=== PATIENT | female | born 1990 | race Caucasian/White ===

== ENCOUNTER → 2018-03-13 14:41 | Outpatient (CLI) | payer MEDICAID, SELFPAY ==
[2018-03-13 18:35] LABS: Hemoglobin A1c 4.7 % (4.2-6.3)
[2018-03-13 21:14] LABS: Follicle Stimulating Hormone 3.3 mIU/mL; Free T3 2.8 pg/mL (2.18-3.98); Glucose 79 mg/dL (74-106); Luteinizing Hormone 8.7 mIU/mL; Prolactin 6.5 ng/mL; T4 Free Direct 0.91 ng/dL (0.76-1.46); Thyroid Stim Hormone (TSH) 1.09 uIU/mL (0.358-3.74)
[2018-03-17 14:53] LABS: HPV Reflexed? NOT INDICATED
== END ==
PROVIDERS: Visit Provider Obstetrics & Gynecology
DX: Z12.4 Encounter for screening for malignant neoplasm of cervix (principal); N92.5 Other specified irregular menstruation
CPT/HCPCS: 36415; 82947; 83001; 83002; 83036; 84146; 84439; 84443; 84481; 88175; G0145

== ENCOUNTER 2018-06-17 05:55 | Day surgery (SDC) | payer MEDICAID, SELFPAY ==
[2018-06-11 11:48] LABS: Hematocrit 39.4 % (37-47); Hemoglobin 13.3 g/dl (12.0-15.0); Mean Corp Hgb Conc 33.8 g/gl (32-36); Mean Corpuscular Hgb 32.9 pg (27.0-32.0); Mean Corpuscular Volume 97.5 fL (81-99); Mean Platelet Vol. 9.7 fl (6.2-12.0); Platelet Count 221 K/mm3 (150-450); RBC Distribution Width CV 12.4 % (11.6-14.6); RBC Distribution Width SD 43.2 fl (35.1-43.9); Red Blood Count 4.04 M/mm3 (4.2-5.4); White Blood Count 5.7 K/mm3 (4.4-11.0)
[2018-06-11 11:49] LABS: Scan Indicated on CBC? Y/N NO
[2018-06-11 12:01] LABS: Prothrombin Time (Protime)PT. 13.4 SECONDS (11.7-14.9)
[2018-06-11 12:02] LABS: Partial Thromboplast Time 30.4 Seconds (24.1-36.2)
[2018-06-11 12:49] LABS: Pregnancy, Serum, hCG Quali. NEGATIVE Negative (0-9 Nonpreg)
[2018-06-17 06:12] VITALS: BP 106/71; PULSE 58; RESP 16; TEMP 36.7; O2SAT 98; BMI 22.1
[2018-06-17 06:31] LABS: Internal QC Validated? YES +Cl - CLEAR BKGD; Pregnancy, Urine Negative Negative
--- NOTE | 2018-06-17 07:30 | FALS_PTH ---
PATIENT: WHITNEY HERNANDEZ LOC: [facility] [place] U#:[id number] AGE/SX: 27/F ROOM: RE06/17/[address]: Dr. Pa Mendoza MD : [id number] BED: DIS: 06/17/2018 SPEC #: [id number] RECD: 06/17/18 09:58 STATUS: COLE RECapo #: [id number] MARYBETH: 06/17/18 07:[address]: Pa Mendoza DEPT: SURGICAL PATHOLOGY RECD BY: Ronaldo Schmitt ENTERED: 06/17/18 11:03 SP TYPE: FALL TUBES OTHR DR: Dr. Mt Maciel MD Tissues: Fallopian tube Procedures: Surgery Specimen Level II HEADER OPERATION: Bilateral laparoscopic salpingectomy PRE-OP DIAGNOSIS: Sterilization request TISSUE SUBMITTED: Bilateral fallopian tubes MICROSCOPIC DIAGNOSIS Right and left fallopian tubes, salpingectomies: Two complete cross-sections of fallopian tubes with no pathologic change. AM:barrett 06/18/18 MICROSCOPIC DESCRIPTION Slides are reviewed. GROSS DESCRIPTION Received is one container labeled with the patient's name and designated bilateral fallopian tubes. The specimen consists of four tubular fragments of pink-lainez soft tissue. The smallest measures 1 cm in greatest dimension and the largest measures 3 cm. Fimbrial ends are identified on two fragments. Boatswain'S Mate sections are submitted in one cassette. / AM:barrett 06/17/18 TC: 4 CPT: 71993 x2
--- NOTE | 2018-06-17 07:44 | PCM.DC ---
You will use the following diet at home:: No restrictions Your food should be the consistency of: Regular Discharge Activity: Return to Normal Activity, May Drive, May not drive while taking narcotic pain medications., May Shower Return to work on:: 06/22/18 May resume sexual activity in: 2 weeks Call your doctor if your incision/area has: Sudden Increased Bleeding, Increased Pain/ Swelling, Increased Redness, Foul Smelling Discharge, Swelling at the incision site Call your doctor if you observe: Fever of 101 or Higher, Inability to urinate, Inability to have a bowel movement, Using more than one pad per hour, Shortness of breath, Chest pain, Calf discomfort, Uncontrolled pain Remove Dressing in (days):: 2 Cleanse incision/area with: Soap & Water Allergies/Adverse Reactions: Allergies Iodinated Contrast- Oral and IV Dye Allergy (Verified 06/10/18 11:13) Angioedema morphine Adverse Reaction (Verified 06/10/18 11:18) Vomiting Medications to take at Discharge Fluoxetine [Prozac] 20 mg PO DAILY 06/10/18 Gabapentin [Neurontin] 300 mg PO TID 06/10/18 Norgestimate-Ethinyl Estradiol [Evangeline-Linyah 28 Tablet] 1 each PO DAILY 06/10/18 Ibuprofen 600 mg PO 4X/DAY #30 tab 06/17/18 Oxycodone [Oxyir] 5 mg PO Q4H PRN PRN 7 Days #20 tab 06/17/18 The following prescriptions were given: Oxycodone [Oxyir] 5 mg PO Q4H PRN PRN 7 Days #20 tab PRN Reason: Severe Pain (6-10/10) Ibuprofen 600 mg PO 4X/DAY #30 tab Primary Care Physician: Mt Maciel MD [Primary Care Provider] - Test Results: Test results from this visit will be discussed in further detail at your follow-up appointment, if applicable. Please Follow Up With: Pa Mendoza MD When: one week Proposed Discharge Date: 06/17/18
--- NOTE | 2018-06-17 07:47 | OP.PCM_ITS ---
Report of Operation Date of Procedure: 06/17/18 Pre-Operative Diagnosis: Requests permanent sterilization Post-Operative Diagnosis: Same Surgery/Procedure Performed:: Laparoscopic Bilateral Salpingectomy and lysis of pelvic/abdominal adhesions Description of Surgical Findings:: Normal appearing uterus, cervix, and ovaries. Both fallopian tubes had been status post ligation but left side appeared both ends connected. Filmy adhesions present on left and right lower abdominal sidewalls between bowel and sidewalls. Normal appearing gallbladder, stomach, liver and appendix. business programmer: Kezia Carrera Type of Anesthesia:: General Anesthesiologist: Reynaldo Alvarez Special Medications: none Specimen's removed: right and left fallopian tubes Drains: none Estimated Blood Loss (mL): minimal Fluids Replaced: 600cc LR Description of Procedure: Karen was taken to the OR with IV running. SHe was given two grams of Cefotetan intravenously for surgical prophylaxis. General anesthesia was introduced without complication. She was then prepped and draped in the dorsal lithotomy position. A red rubber catheter was used to drain the bladder. A uterine manipulator was then placed. Attention was then directed to the abdomen. A 5mm vertical incision was then made in the lower base of the umbilicus. A Sue clamp was then used to bluntly dissect the subcutaneous tissue to the level of the fascia. The abdominal wall was then elevated and a Veress needle was placed through the umbilical defect into the abdominal cavity. The abdomen was then inflated to 15 Torr with CO2 gas. The Veress needle was removed and replaced with a 5mm laparoscopic trocar and sleeve. The trocar was removed and replaced with the laparoscope. A thorough survey of the abdomen and pelvis was then performed. Findings were as described above. Two additional 5 mm laparoscopic ports were placed with direct visualization of the laparoscope. One was placed laterally 4 cm below the level of the umbilicus lateral to the left inferior epigastric vessel. The second was placed in the midline midway between the umbilicus and the symphysis pubis. The left fallopian tube was then grasped at the fimbriated end elevated and the distal portion dissected along the mesosalpinx to it's cut portion. This portion of the tube was then removed. The proximal portion was then dissected along the mesosalpinx to the cornua of the uterus and then amputated and removed. The right fallopian tube was removed in a similar fashion. The pelvic and abdominal adhesions were then carefully dissected free. Funmi was used over these areas. Hemostasis was excellent. The laparoscopic ports were then removed. The incisions were closed with 4-0 Monocryl suture. The incision sites were injected with 0.25% Marcaine. SHe was reversed from anesthesia and taken to the recovery room in stable condition. Sponge, needle, and instrument counts were correct. Grafts/Implants Used: Funmi - Complications none - Admit VTE Documentation VTE Present on Admission: No VTE Mechan Device Prophylaxis: SCD's VTE Pharm Prophylaxis ordered?: No
[2018-06-17] MEDS: Bupivacaine 0.25% 30 ML Vial (08:19)
[2018-06-17 08:33] VITALS: BP 106/71; BP 130/84; PULSE 71; RESP 18; TEMP 36.6; O2SAT 100
[2018-06-17 08:45] VITALS: BP 106/71; BP 137/88; PULSE 67; RESP 18; O2SAT 100
[2018-06-17 09:00] VITALS: BP 106/71; BP 118/87; PULSE 79; RESP 16; O2SAT 99
[2018-06-17 09:15] VITALS: BP 106/71; BP 111/73; PULSE 77; RESP 16; TEMP 36.6; O2SAT 97
[2018-06-17] MEDS: Lactated Ringers 1,000 ML 125 ML IV (09:42)
[2018-06-17] MEDS: oxyCODONE 5 MG Tablet PO (09:42)
[2018-06-17 10:14] VITALS: BP 106/71; BP 116/78; PULSE 66; RESP 18; TEMP 36.5; O2SAT 96
== END 2018-06-17 10:21 | disposition home or self-care (01) ==
LOC: SDC 05:55 → AC 05:55
PROVIDERS: Family Provider Family Medicine; PCP Family Medicine; Referring Provider Obstetrics & Gynecology; Visit Provider Obstetrics & Gynecology
PROC: (CPT 58661; principal; 2018-06-17 07:15)
DX: Z30.2 Encounter for sterilization (principal); F32.9 Major depressive disorder, single episode, unspecified; F41.9 Anxiety disorder, unspecified; F12.90 Cannabis use, unspecified, uncomplicated; F17.200 Nicotine dependence, unspecified, uncomplicated
CPT/HCPCS: 58661; 36415; 81025; 84703; 85027; 85610; 85730; 86850; 86900; 88302; J7120; J2405

== ENCOUNTER 2018-06-25 11:13 | Emergency (ER) | payer MEDICAID, SELFPAY ==
[2018-06-25 11:15] VITALS: BP 119/78; PULSE 75; RESP 17; TEMP 36.8; O2SAT 99; BMI 21.8
--- NOTE | 2018-06-25 11:31 | RAD_ITS ---
STUDY: X-RAY - RIGHT WRIST REASON FOR EXAM: Female, 27 years old. Pain following a recent fall. TECHNIQUE: 4 view(s) of the wrist were obtained including a navicular view. COMPARISON: None. FINDINGS: There is demineralization of the radius and ulna. Normal radiocarpal articulation. Normal distal radioulnar articulation. There is demineralization of the carpal bones. Normal carpal articulations. Normal carpometacarpal articulation of the thumb. Normal second through fifth carpometacarpal articulations. Normal visualized metacarpal bones. The soft tissue structures are unremarkable. RAD/Wrist min 3 Views IMPRESSION: No acute fracture is seen. Osteopenia. Electronically Signed: Phill Luna MD at 13:30 EST , Service support ,
[2018-06-25] MEDS: HYDROcodone Bitartrate/Apap 5/325 Tablet PO (11:41)
--- NOTE | 2018-06-25 14:01 | ED.DCSUM_ITS ---
- ER Visit Summary Date of Service: 06/25/18 Chief Complaint: Wrist injury History of Present Illness: The patient is a 27 F with a wrist injury yesterday evening. The patient slipped on ice and fell on her right wrist. She has pain over her right snuffbox. Worse with movement. No other injuries or complaints. Physical Examination: Vitals unremarkable. Head and neck atraumatic. Alert and oriented. Right snuffbox tender to palpation. Overlying skin normal. No deformity. Neurovascular intact distally. Good range of motion. Test Results: X-rays negative. Emergency Department Course and Treatment: Risks of a scaphoid injury were discussed. The patient was placed in a thumb spica splint. Rest ice elevate. Follow-up with primary care for recheck. Repeat imaging if pain persists. Treatment Plan: As above Disposition: Discharge Impression: 1. Right wrist sprain This note was generated with [employer] dictation software. It may contain incorrect words, spelling, and punctuation that were not noted in review of the chart prior to signing ED Disposition - Plan for ED Patient: Referrals: Mt Maciel MD [Primary Care Provider] -
--- NOTE | 2018-06-25 14:01 | ED.DEP ---
ED Disposition - Plan for ED Patient: Instructions: ED Sprain Wrist Prescriptions: Ibuprofen [Motrin] 800 mg PO TID PRN PRN #20 tab PRN Reason: Pain Referrals: Mt Maciel MD [Primary Care Provider] -
[2018-06-25 14:34] VITALS: PULSE 70; RESP 17; O2SAT 98
== END 2018-06-25 14:34 | disposition home or self-care (01) ==
LOC: ED 12:17
PROVIDERS: Emergency Provider Emergency Medicine; Family Provider Family Medicine; PCP Family Medicine
DX: S63.501A Unspecified sprain of right wrist, initial encounter (principal); W00.0XXA Fall on same level due to ice and snow, initial encounter; Y93.H3 Activity, building and construction; Y92.9 Unspecified place or not applicable; F32.9 Major depressive disorder, single episode, unspecified; F12.90 Cannabis use, unspecified, uncomplicated; Z72.0 Tobacco use
CPT/HCPCS: 73110; 99283